=== PATIENT | female | born 1950 | race Caucasian/White ===

== ENCOUNTER → 2016-08-07 | Outpatient (CLI) | payer OTHER ==
[~2016-08-07] MED LIST: AZIT500T PO; BUPRTAB51 PO; CHOL200010 PO; LEVO50TA PO; NRN300 PO; NXM/40 PO; OMEG10007 PO; OXYC-57 PO; SERT-234 PO; SIMV20TA2 PO; SUCR1TAB PO; VNTHFA/IN INH; XRL20 PO
== END | disposition home or self-care (01) ==
LOC: C.RDSM 14:32
PROVIDERS: ATTEND Physical Medicine & Rehabilitation Sports Medicine
DX: Z96.659 Presence of unspecified artificial knee joint (principal); M19.90 Unspecified osteoarthritis, unspecified site; M22.8X2 Other disorders of patella, left knee

== ENCOUNTER → 2017-02-26 | Outpatient (CLI) | payer OTHER ==
[~2017-02-26] MED LIST changes: -OXYC-57 PO
== END | disposition home or self-care (01) ==
LOC: C.RDSM 15:37
PROVIDERS: ATTEND Physical Medicine & Rehabilitation Sports Medicine
DX: Z96.652 Presence of left artificial knee joint (principal); M17.0 Bilateral primary osteoarthritis of knee

== ENCOUNTER → 2017-03-01 | Outpatient (CLI) | payer OTHER ==
--- NOTE | 2017-03-01 14:41 | DIAGNOSTIC IMAGING REPORT ---
VIDEO SWALLOW CLINICAL HISTORY: 66 years-old Female with R13.10 [id number]. Acute dysphasia. TECHNIQUE: Video fluoroscopic evaluation of swallowing was performed in the AP and lateral projections by the speech pathology staff. The patient is fed nectar-thick and thin liquid barium, a barium coated wafer, and barium pudding. FLUOROSCOPY TIME: 1.9 minutes. COMPARISON STUDY: Chest radiograph 03/31/2016. FINDINGS: There is normal hyoid excursion and epiglottic deflection. No significant penetration or aspiration identified. Mild dysmotility is noted within the distal esophagus with some tertiary contractions. Swallowing function is otherwise within normal limits. Intervertebral disc space narrowing with endplate spurring is incidentally noted within the mid and lower cervical spine. IMPRESSION: 1. No aspiration identified. 2. Please see the speech pathologist report for detailed findings and recommendations. Electronically signed by: Tr Bhatt M.D. 03/01/2017 2:40 PM Dictated Date/Time: 03/01/2017 2:37 PM
--- NOTE | 2017-03-02 11:46 | SWALLOWING EVALUATION ---
HISTORY: This 66 year old woman was referred for a video swallow study at in order to rule out aspiration and identify the safest consistencies for optimal oral intake. The patient reports that she feels food has episodes of coughing while she eats, and it is not specific to any food or liquid. Also reports that of a globus sensation in her throat. PMH is significant for GERD, COPD, DVTx2, hypothyroid, HLD, anxiety, and osteoarthritis. Currently the patient's diet is regular. PROCEDURE: The patient was seen in the Radiology Department of for the [facility]. Cursory examination of the oral cavity revealed natural dentition in good condition. Movement of the articulators was wnl. The patient was seated upright on a stool and was viewed in both the Anterior-Posterior (A-P) and Lateral planes. Volitional phonation exercises completed in the A-P plane revealed bilateral vocal fold movement and vocal intensity was judged to be wnl. In the lateral plane, the patient was given the following boluses: 1 tsp. thin liquid barium x 2, single swallow thin liquid barium self-presented from a cup x2, sequential swallows of thin liquid barium self-presented from a straw, 1 tsp. nectar-thick liquid barium, single swallow nectar-thick liquid barium self-presented from a cup x1, 1 tsp. barium pudding, and 1 club cracker coated in barium pudding. The patient was then repositioned into the A-P plane and given the following boluses: 1 cup sip nectar thick barium and 1 tsp. barium pudding. RESULTS: Oral Stage: Lip closure was adequate. The patient was able to maintain a cohesive liquid bolus upon command without lateral or posterior escape. Mastication was timely and efficient. Lingual motion for bolus transport was brisk. There was trace retention lining the tongue and palate after the swallow. The initiation of the pharyngeal swallow was delayed and triggered when the bolus head reached valleculae. Pharyngeal Stage: Soft palate elevation was complete. Laryngeal elevation revealed complete superior movement of the thyroid cartilage with complete approximation of the arytenoids to the epiglottic base. Anterior hyoid excursion was partially reduced. Epiglottic deflection was complete. Laryngeal vestibular closure was complete. The pharyngeal stripping wave was present and complete. Pharyngeal contraction was complete. There was partial distention and partial duration of the opening to the pharyngoesophageal segment (PES). Tongue base retraction was reduced, with a narrow column of contrast located between the tongue base and pharyngeal wall during the swallow. There was trace retention located in the valleculae after the swallow. Esophageal stage: There was distal esophageal retention with retrograde flow below the PES that cleared with a liquid wash. A cricopharyngeus impression was also evidenced. SUMMARY/RECOMMENDATIONS: This patient presents with normal kin-pharyngeal swallowing. The patient presents with s/s of esophageal dysfunction. The following is recommended: 1. "Slippery" regular diet, thin liquids. Avoid foods that are dry, thick, pasty, or doughy. Use condiments such as butter, gravy, and sauce to assist in keeping food moist and slippery. 2. Aspiration precautions, straws OK. Fully upright while eating and 30 minutes after meals. Do not lay flat, elevate head of the bed to at least 30 degrees at all time, to include while sleeping. 3. Safe swallow strategies: Alternate solids and liquids. Rest breaks, small frequent meals as needed. 4. Consider follow up GI as needed with any increased c/o esophageal dysfunction. A summary of the results and recommendations was discussed with the patient immediately following the study with verbal understanding. Also provided the patient with verbal and written education re: a slippery diet with verbal understanding. Thank you for referral of this patient. Please contact me at if any additional information is needed.
== END | disposition home or self-care (01) ==
LOC: C.RAD 13:01
PROVIDERS: ATTEND Physician Assistant
DX: R13.10 Dysphagia, unspecified (principal)

== ENCOUNTER → 2017-04-24 | Day surgery (SDC) | payer OTHER ==
[2017-04-11 10:04] VITALS: Ht 160 cm; Wt 94.5 kg
[~2017-04-24] VITALS: Ht 160 cm; Wt 94.5 kg
[~2017-04-24] MED LIST changes: +ATROPINE SULFATE 0.1 MG/ML 5ML SYR IV PRN; -AZIT500T PO; +BUPIVACAINE 0.5 % 5 MG/1 ML PF 10ML VIAL ONE; +CEFAZOLIN 2000MG IV PUSH 10 ML IV SCH; +CEPH500C2 PO; +DEXAMETHASONE SOD INJ 4 MG/ML VIAL ONE; +EpHEDrine SULFATE INJ 50 MG/ML AMP IV PRN; +FENTANYL CITRATE INJ 50 MCG/1 ML 2 ML VIAL IV PRN; +FENTANYL CITRATE INJ 50 MCG/1 ML 2 ML VIAL ONE; +LACTATED RINGER'S 1000ML 1,000 ML IV SCH; +LIDOCAINE HCL 2% 2 ML VIAL (20MG/ML) ONE; +LIDOCAINE HCL 2% LOCAL 20 ML VIAL ONE; +MIDAZOLAM HCL 1 MG/ML 2ML VIAL ONE; +MISCCAP80 PO; -NXM/40 PO; -OMEG10007 PO; +ONDANSETRON INJ 2 MG/ML 2 ML VIAL IV PRN; +PANT40TA PO; +PROPOFOL IV EMULSION 10 MG/ML 20 ML VIAL IV ONE; +SODIUM CHLORIDE 0.9% 1000ML 1,000 ML IV SCH; +TOLT1CAP6 PO
--- NOTE | 2017-04-24 06:53 | History & Physical Bridge Note ---
H&P Re-Evaluation Bridge Note: I have examined the patient, reviewed the History & Physical and in the interval since the performance of the History & Physical I have noted the following changes of clinical significance: consent obtained.No changes noted
--- NOTE | 2017-04-24 06:55 | Discharge Instructions ---
Discharge Instructions Date of Service Apr 24, 2017. Visit Reason for Visit: Right Carpal Tunnel Syndrome Discharge Discharge Diagnosis / Problem: same Discharge Goals Goal(s): Decrease discomfort, Improve function Medications Stopped Medications Name(s): cesariorelgiovanni, last dose 04/20/17 Restart Stopped Medication(s): resume all meds starting tomorrow Activity Recommendations Activity Limitations: as noted below Lifting Limitations: until after follow-up appointment Exercise/Sports Limitations: until after follow-up appointment May Resume Sexual Activity: when tolerated Shower/Bathe: keep incision dry Anesthesia . Post Anesthesia Instructions: If you have had General Anesthesia or IV Sedation: * Do not drive today. * Resume driving when surgeon permits. * Do not make important decisions or sign legal documents today. * Call surgeon for: 1. Temperature elevations greater than 101 degrees F. 2. Uncontrollable pain. 3. Excessive bleeding. 4. Persistent nausea and vomiting. 5. Medication intolerance (nausea, vomiting or rash). * For nausea and vomiting use only clear liquids such as: tea, soda, bouillon until nausea subsides, then gradually increase diet as tolerated. * If you have any concerns or questions, call your surgeon's office. If physician is unavailable and it is an emergency, call 911 or go to the nearest emergency room. . Instructions / Follow-Up Instructions / Follow-Up The following are instructions to follow after minor hand surgery. ACTIVITY RECOMMENDATIONS: * Minimize activity until your first visit after surgery. * No excessive walking, jogging, sports or laboring. * Return to activity is individualized. Most patients are able to return to everyday activities within 2 weeks. * Return to sports or intensive labor usually occurs at 1-2 months. * DRIVING: Driving may be resumed when you feel you have adequate pain control and use of the hand. * BATHING: You may shower or sponge-bathe immediately after surgery. The dressing will need to be covered with a plastic bag or plastic wrap until the dressing is changed on the fourth or fifth day after surgery. Once the dressing has been changed on the fourth or fifth day after surgery, you may shower and get the incision wet. * Wash with regular soap and water. * Do not bathe (submerge the incision), soak, swim or use a hot tub until the incision is completely healed over with normal skin and the doctor has given the OK to proceed. * There is no need to apply any ointments, powders or salves to your incision. * Do not apply alcohol or hydrogen peroxide directly to the incision. Diluted peroxide (50:50 mixture with sterile saline) may be used to clean dried blood from around the incision area. WORK/SCHOOL: * You may return to sedentary work or school when you are feeling comfortable. This is usually 3-7 days after surgery. * Expect increased discomfort with increased activity. Continue to elevate and ice the hand as much as possible. DIET: * Resume previous diet. MEDICATIONS: * You will have a prescription for pain medication and an anti-inflammatory medication after surgery. Use the pain pills for severe pain and the anti-inflammatory for less severe pain. * Once the pain pills have run out, try to use the anti-inflammatory. If this is not effective then contact the office for assistance. * The pain medication may cause nausea, constipation and sleepiness. You should see how they affect you before driving or similar activity. * The anti-inflammatory may cause stomach upset and bleeding. If this occurs, let your doctor know immediately . * Some patients may need blood clot prevention. This can be done with either a pill or a simple shot. Your doctor will advise you on when to begin these medications and how to take them. * Do not take aspirin or other anti-inflammatory products (i.e. Advil or Aleve ) if taking blood thinner medication. * Take a stool softener like Colace or a stimulant like Senokot to prevent constipation. SPECIAL CARE INSTRUCTIONS: ICE: * Do not apply ice directly to the skin. * Use a thin dressing or stockinet between the skin and ice bag. The dressing in place after surgery will suffice. * Apply ice for 20-30 minutes and repeat every 2-4 hours. This is especially important for the first 3-7 days after surgery. * Once the pain improves, use ice as needed. ELEVATION: * Keep your hand elevated at or above the level of your heart as much as possible. * Expect some increased discomfort and swelling if you allow your hand to hang down for any length of time. DRESSING: * Your dressing will be changed 4-5 days after surgery by the physical therapist or physician's assistant plant control operator. Leave your dressing intact until this time. * You may then change your dressing daily with clean dry gauze or Band-aids and a soft wrap or stockinet. * Always wash your hands prior to touching the incision area. * Once the stitches are removed, you may leave the wound open to air or cover with a thin bandage. * There is no need to apply any ointments, powders or salves to your incision. * Expect some bloody drainage for the first few days after surgery. * Leave the tape strips in place (if present) for 5-7 days. * The initial dressing after surgery may become soaked with blood or fluid which is normal. You may reinforce your dressing with clean, dry gauze as needed. BRACE: * Bracing is generally not needed after routine hand surgery. THERAPY: * Physical therapy may be prescribed after your surgery. * For carpal tunnel and trigger digit surgery you may begin moving your fingers and wrist immediately after surgery as tolerated. * Be careful to not overuse. * Once the sutures are removed, further range of motion exercises can be performed. * Hand incisions may be very sensitive for a few months after surgery so avoid excessive pressure on the incision. If necessary, use a padded weightlifters' glove. * You may massage the incision with skin cream to make it less sensitive and reduce scarring. * Hand strength usually returns with normal use. * If needed, squeezing a soft sponge or Play-dough may help. * Your doctor will recommend physical therapy if necessary. PROBLEMS/QUESTIONS: * If you have any problems such as severe pain, numbness, tingling or high fevers or if you have any questions, please contact the office at [phone]. * It is not uncommon to have some numbness and tingling after the surgery especially if you have had a nerve block done. This should gradually improve over the first 1- 2 days. If this persists longer or worsens then contact the office. FOLLOW UP VISIT: * If not already scheduled, please call the office at to schedule follow-up appointments for approximately 10 days, 6 weeks and 3 months after surgery. Diet Recommendations Recommended Home Diet: resume previous diet Procedures Procedures Performed: see op note Pending Studies Studies pending at discharge: no Medical Emergencies . Who to Call and When: Medical Emergencies: If at any time you feel your situation is an emergency, please call 911 immediately. . Non-Emergent Contact Non-Emergency issues call your: Specialist Call Non-Emergent contact if: temperature is above 101.5, wound has increased drainage, wound has increased redness, wound has increased pain . . "Provider Documentation" section prepared by Virgil Interiano. .
--- NOTE | 2017-04-24 08:24 | [facility] Post Operative Brief Note ---
Immediate Operative Summary Operative Date Apr 24, 2017. Pre-Operative Diagnosis Right Carpal Tunnel Syndrome Post-Operative Diagnosis same Procedure(s) Performed Right Carpal Tunnel Open Release Surgeon Dr Interiano Electric Solderer Surgeon(s) AGUSTIN Nunez Estimated Blood Loss trace Findings CTS Fluids (cc crystalloids) 700cc Specimens none Drains none Anesthesia local/sedation Complication(s) None Disposition Recovery Room / PACU
[2017-04-24 08:26] VITALS: TEMP 37
--- NOTE | 2017-04-24 08:33 | Anesthesia Progress Nt - [facility] ---
Anesthesia Post Op Note Date & Time Apr 24, 2017 at 08:32 Vital Signs Pain Intensity: 0 Vital Signs Past 12 Hours Date Time Temp Pulse Resp B/P (MAP) Pulse Ox O2 Delivery O2 Flow Rate FiO2 04/24/17 06:44 163/89 (113) 04/24/17 06:31 36.6 76 16 152/106 (121) 96 Room Air Notes Mental Status: alert / awake / arousable, participated in evaluation Pt Amnestic to Procedure: Yes Nausea / Vomiting: adequately controlled Pain: adequately controlled Airway Patency, RR, SpO2: stable & adequate BP & HR: stable & adequate Hydration State: stable & adequate Anesthetic Complications: no major complications apparent
--- NOTE | 2017-04-24 08:46 | OPERATIVE REPORT ---
DATE OF OPERATION: 04/24/2017 SURGEON: Virgil Interiano MD MACHINING AND ASSEMBLY SUPERVISOR: Troy Kasper PA-C. No resident or fellow available. PREOPERATIVE DIAGNOSIS: Right carpal tunnel syndrome. POSTOPERATIVE DIAGNOSIS: Same. OPERATION PERFORMED: Right carpal tunnel release. PERIOPERATIVE SITUATION: Medically cleared female with intractable numbness and tingling. Physical exam and EMG consistent with diagnosis. We will proceed with surgery. Consent obtained. All risks and benefits identified on consent. DESCRIPTION OF PROCEDURE: The patient appropriately identified, site verified, consent verified, 2 grams of Ancef confirmed as being given. The right upper extremity was blocked with 4 mL of 0.5% plain Marcaine and 4 mL of 2% plain lidocaine. The upper extremity was then prepped and draped in usual routine fashion. Tourniquet inflated to 250 mmHg after exsanguination of limb with a rubber Esmarch bandage for a total of 12 minutes. Curvilinear incision made based on the fourth ray. Sharp dissection carried to skin and blunt dissection down to the palmar fascia. This was then incised under direct vision. Transverse carpal ligament and antebrachial fascia was then identified and incised from proximal to distal. The carpal canal was opened. There were no masses. There was good decompression. The nerve became hyperemic. The FPL was identified. The motor takeoff branch was not explored. The wound was then irrigated and closed with horizontal 4-0 nylon mattress sutures appropriately dressed and the patient transferred to the holding area in satisfactory condition having tolerated the procedure well. ESTIMATED BLOOD LOSS: Trace. CRYSTALLOID: 700 mL. Start her Xarelto for baseline tomorrow. I attest to the content of the Intraoperative Record and any orders documented therein. Any exception s are noted below.
[2017-04-24 09:05] VITALS: BP 135/82; PULSE 62; O2SAT 95
--- NOTE | 2017-04-24 15:17 | [facility] Operative Report ---
Operative Report Operative Date Apr 24, 2017. Pre-Operative Diagnosis Right Carpal Tunnel Syndrome Post-Operative Diagnosis same Procedure(s) Performed Right Carpal Tunnel Open Release Surgeon Dr Interiano Electric Range Servicer Surgeon(s) AGUSTIN Nunez Estimated Blood Loss trace Findings Median nerve entrapment right wrist Fluids (cc crystalloids) 700cc Specimens none Drains none Complication(s) None Disposition phase 2 recovery Indications This 66-year-old white female presented to the office with complaints of right hand numbness and tingling. She had tried conservative care measures without success. She elected to proceed with surgical intervention after being educated about potential risks and outcomes. Preoperative EMG was obtained. Description of Procedure Patient was taken to the operating room where she was given local anesthetic and sedation. She was prepped and draped in usual sterile fashion. Please see Dr. Interiano's operative report for specifics of the procedure. I was present for the entire case from initial patient positioning through final wound closure. Assistance was provided in tissue traction, hemostasis, final wound closure and splint application. Patient was taken to phase 2 recovery in satisfactory condition. I attest to the content of the Intraoperative Record and any orders documented therein. Any exceptions are noted below.
== END | disposition home or self-care (01) ==
LOC: X.SURG 06:18
PROVIDERS: ATTEND Physical Medicine & Rehabilitation Sports Medicine
DX: G56.01 Carpal tunnel syndrome, right upper limb (principal); K21.9 Gastro-esophageal reflux disease without esophagitis; J44.9 Chronic obstructive pulmonary disease, unspecified; E03.9 Hypothyroidism, unspecified; M19.90 Unspecified osteoarthritis, unspecified site; F32.9 Major depressive disorder, single episode, unspecified; Z86.718 Personal history of other venous thrombosis and embolism; Z79.01 Long term (current) use of anticoagulants; Z79.899 Other long term (current) drug therapy

== ENCOUNTER 2017-09-19 07:47 | Inpatient (IN) | payer OTHER, MEDICARE ==
[2017-08-20 09:36] VITALS: BMI 37.0
--- NOTE | 2017-08-20 10:09 | PAT Medication Instructions ---
Service Date Aug 20, 2017. Current Home Medication List Albuterol Hfa (Ventolin Hfa), 2 PUFF INH Q6H PRN for SOB/Wheezing Bupropion (Wellbutrin-Xl), 300 MG PO QAM Gabapentin (Gabapentin), 4 CAP PO QD Ibuprofen (Advil), 400 MG PO Q6H PRN for RN Levothyroxine Sodium (Synthroid), 50 MCG PO QAM Mirabegron (Myrbetriq Er), 25 MG PO QPM Pantoprazole (Protonix), 40 MG PO QAM Probiotic Product (Probiotic), 1 CAP PO QAM Rivaroxaban (Xarelto), 1 TAB PO QPM Sertraline (Zoloft), 150 MG PO QAM Simvastatin (Zocor), 20 MG PO QAM Sucralfate (Sucralfate), 1 TAB PO BID Tiotropium [place] (Spiriva Handihaler), 1 CAP INH QAM Medication Instructions For Your Scheduled Surgery - Check with surgeon and prescribing physician for instructions (in order for spinal anesthesia to be used, need to be off Xarelto for 72 hours prior to surgery-- patient advised to check with prescribing physician) Rivaroxaban (Xarelto), 1 TAB PO QPM - Check with surgeon for instructions: Ibuprofen (Advil), 400 MG PO Q6H PRN for RN - Hold the following medications the morning of surgery: Mirabegron (Myrbetriq Er), 25 MG PO QPM Probiotic Product (Probiotic), 1 CAP PO QAM Sucralfate (Sucralfate), 1 TAB PO BID - Take the following medications the morning of surgery with a sip of water: Sertraline (Zoloft), 150 MG PO QAM Simvastatin (Zocor), 20 MG PO QAM Tiotropium [place] (Spiriva Handihaler), 1 CAP INH QAM Pantoprazole (Protonix), 40 MG PO QAM' Levothyroxine Sodium (Synthroid), 50 MCG PO QAM Bupropion (Wellbutrin-Xl), 300 MG PO QAM Albuterol Hfa (Ventolin Hfa), 2 PUFF INH Q6H PRN for SOB/Wheezing (if needed) - Take the following medications as scheduled the night before surgery: Sucralfate (Sucralfate), 1 TAB PO BID Albuterol Hfa (Ventolin Hfa), 2 PUFF INH Q6H PRN for SOB/Wheezing (if needed) Gabapentin (Gabapentin), 4 CAP PO QD If you have any questions please call us at [phone] or [phone] or [phone]
[2017-08-20 11:03] LABS: BASO % 0.3 %; BASO ABS # 0.02 K/uL (0-0.2); EOS ABS # 0.18 K/uL (0-0.5); HEMATOCRIT 40.2 % (37-47); HEMOGLOBIN 12.9 g/dL (12.0-16.0); IG# 0.02 K/uL (0.00-0.02); LYMPH % 33.1 %; LYMPH ABS # 1.96 K/uL (1.2-3.4); MEAN CORPUSCULAR HEMOGLOBIN 29.5 pg (25-34); MEAN CORPUSCULAR HGB CONC 32.1 g/dl (32-36); MEAN PLATELET VOLUME 10.9 fL (7.4-10.4); MONO % 7.9 %; MONO ABS # 0.47 K/uL (0.11-0.59); NEUT % 55.4 %; NEUT ABS # 3.28 K/uL (1.4-6.5); PLATELET COUNT 210 K/uL (130-400); RED CELL DISTRIBUTION WIDTH CV 13.7 % (11.5-14.5); RED CELL DISTRIBUTION WIDTH SD 46.4 fL (36.4-46.3); WHITE BLOOD COUNT 5.93 K/uL (4.8-10.8)
[2017-08-20 11:12] LABS: PTT PATIENT 27.3 SECONDS (21.0-31.0)
[2017-08-20 11:28] LABS: CALCIUM 9.5 mg/dl (8.5-10.1); CREATININE 0.75 mg/dl (0.60-1.20); POTASSIUM 4.1 mmol/L (3.5-5.1)
--- NOTE | 2017-08-21 15:56 | HISTORY & PHYSICAL EXAMINATION ---
DATE OF ADMISSION: 09/19/2017 PREOPERATIVE HISTORY AND PHYSICAL CHIEF COMPLAINT: Right knee pain. HISTORY OF PRESENT ILLNESS: This 66-year-old white female presents to the office with complaints of anterior right knee pain that has been ongoing for several years. It has become worse with time. She previously had a right total knee arthroplasty in approximately 2000. She did not have the patella resurfaced at that time. She has done well overall other than the patellar pain. She no longer desires to live with the discomfort. She previously had a left knee patellar resurfacing in 2016 and has done very well with that. She elects to proceed with the same on the right. The right knee pain does affect her ADLs. It is worse with ambulation and weightbearing. She has tried physical therapy without improvement. No numbness or tingling. No weakness overall. No other complaints. She is scheduled for right knee patellar resurfacing and possible poly exchange on 09/19/2017. PAST MEDICAL HISTORY: Significant for COPD, osteoarthritis, hypothyroidism, history of DVT, GERD, depression, and low back pain. PAST SURGICAL HISTORY: Cholecystectomy, knee arthroscopy, carpal tunnel release x2, hysterectomy, right elbow surgery, tonsillectomy, total knee arthroplasties in 2000 and 2001, cyst excision in right ankle, cataract surgery bilaterally, and left knee patellar resurfacing in 2016. ALLERGIES: NKDA. CURRENT MEDICATIONS: Gabapentin 100 mg 3 capsules p.o. q.i.d., ibuprofen 200 mg p.o. q. 6 hours p.r.n., Myrbetriq 25 mg p.o. daily, pantoprazole 40 mg p.o. daily, probiotic formula daily, Spiriva 18 mcg inhalation daily, sucralfate daily, Synthroid 50 mcg p.o. daily, Wellbutrin 300 mg extended release p.o. daily, Xarelto 20 mg p.o. daily, Zocor 20 mg p.o. at bedtime, and Zoloft 150 mg p.o. daily. FAMILY HISTORY: Significant for cancer and heart disease. SOCIAL HISTORY: The patient is single. She lives with her partner. No tobacco use, occasional ETOH use. REVIEW OF SYSTEMS: Significant for above-stated conditions, otherwise unremarkable. PHYSICAL EXAMINATION: GENERAL: Well-developed, well-nourished elderly white female, in no acute distress. Sitting in a chair. Alert and oriented. SKIN: Warm and dry with good turgor. No rashes or lesions. No ecchymosis or erythema. HEENT: Normocephalic, atraumatic. EYES: PERRLA, EOMI. NOSE: Nares patent bilaterally without turbinate enlargement. MOUTH: Oropharynx without erythema or exudate. No lesions noted. Uvula in the midline. Oral mucosa moist. Fair dentition. Dental caps and fillings are noted. HEART: RRR. No MGR. LUNGS: Clear to auscultation bilaterally. No crackles, rhonchi or wheezing. Good air movement. ABDOMEN: Obese. Bowel sounds present x4, soft, nontender. No organomegaly. No masses. MUSCULOSKELETAL: Right knee has no intra-articular effusion. No redness or warmth. Mild crepitus is palpable with motion. Full terminal extension. Flexion to greater than 90 degrees. She does have 1+ peripheral edema in the legs. No medial or lateral joint line discomfort. Ambulatory with a minimally antalgic gait. NEUROLOGIC: Gross sensation is intact across both lower extremities by soft touch. Peripheral pulses are 2+. 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 Arthritic changes are noted. No evidence of loosening of her right total knee implant. IMPRESSION: Right knee patellofemoral arthritis. PLAN: Postoperative prescriptions for Percocet will be provided at discharge from the hospital. Anticipate discharge to home with home health services. She already has a walker. She will obtain medical clearance from Dr. Tse. Preoperative lab work, EKG, and chest x-ray have been ordered. She understands that there will be a possibility of poly liner exchange. Informed written consent will be obtained on the morning of surgery. RAMIREZ
[2017-09-19] VITALS (7 sets, daily range): BP systolic 110–168; BP diastolic 70–86; PULSE 69–82; TEMP 36.4–36.9; O2SAT 90–96; Ht 160 cm; Wt 95.7 kg
[~2017-09-19] VITALS: Ht 160 cm; Wt 95.7 kg
[~2017-09-19 07:47] MED LIST changes: -ATROPINE SULFATE 0.1 MG/ML 5ML SYR IV PRN; +BUPIVACAINE 0.25% 30 ML VIAL ONE; -CEFAZOLIN 2000MG IV PUSH 10 ML IV SCH; +CEFAZOLIN 2000MG IV PUSH 15 ML IV SCH; -CEPH500C2 PO; -CHOL200010 PO; -DEXAMETHASONE SOD INJ 4 MG/ML VIAL ONE; -EpHEDrine SULFATE INJ 50 MG/ML AMP IV PRN; -FENTANYL CITRATE INJ 50 MCG/1 ML 2 ML VIAL IV PRN; -FENTANYL CITRATE INJ 50 MCG/1 ML 2 ML VIAL ONE; +IBUP-1050 PO; +LACTATED RINGER'S 1000ML 500 ML IV SCH; +LACTATED RINGER'S 1000ML IV SCH; -LIDOCAINE HCL 2% 2 ML VIAL (20MG/ML) ONE; -LIDOCAINE HCL 2% LOCAL 20 ML VIAL ONE; -MIDAZOLAM HCL 1 MG/ML 2ML VIAL ONE; +MIRA100T PO; -ONDANSETRON INJ 2 MG/ML 2 ML VIAL IV PRN; -PROPOFOL IV EMULSION 10 MG/ML 20 ML VIAL IV ONE; +ROPIVACAINE 5MG/ML 30 ML 150 MG, BUPIVACAINE 0.5% MPF INJ 30 ML, EpINEphrine HCL INJ 0.... INFIL SCH; -SODIUM CHLORIDE 0.9% 1000ML 1,000 ML IV SCH; +SPRIN/30 INH; -TOLT1CAP6 PO; +TRANEXAMIC ACID INJ 1,000 MG x 1 bag Topical TOP SCH
--- NOTE | 2017-09-19 08:19 | History & Physical Bridge Note ---
H&P Re-Evaluation Bridge Note: I have examined the patient, reviewed the History & Physical and in the interval since the performance of the History & Physical I have noted the following changes of clinical significance:consent obtained. No changes noted
[2017-09-19] MEDS ORDERED: FENTANYL CITRATE INJ 50 MCG/1 ML 2 ML VIAL ONE (10:04)
[2017-09-19] MEDS ORDERED: LIDOCAINE HCL 2% 2 ML VIAL (20MG/ML) ONE (10:04)
[2017-09-19] MEDS ORDERED: MIDAZOLAM HCL 1 MG/ML 2ML VIAL ONE ×2 (10:04→10:45)
[2017-09-19] MEDS ORDERED: PROPOFOL IV EMULSION 10 MG/ML 20 ML VIAL IV ONE ×2 (10:04→14:16)
[2017-09-19] MEDS ORDERED: POVIDONE-IODINE OP SOLN 30 ML BTL ONE (10:57)
[2017-09-19] MEDS ORDERED: ORTHO JOINT ANESTHETIC ONE (10:57)
[2017-09-19] MEDS ORDERED: EpHEDrine SULFATE INJ 50 MG/ML AMP IV PRN (11:15)
[2017-09-19] MEDS ORDERED: ATROPINE SULFATE 0.1 MG/ML 5ML SYR IV PRN (11:15)
[2017-09-19] MEDS ORDERED: PHENYLEPHRINE 100MCG/ML 5ML SYR ONE (12:26)
--- NOTE | 2017-09-19 12:32 | [facility] Post Operative Brief Note ---
Immediate Operative Summary Operative Date Sep 19, 2017. Pre-Operative Diagnosis Right knee patellofemoral arthritis Post-Operative Diagnosis Same as preop Procedure(s) Performed Right Patella Resurfacing Surgeon Dr. Interiano Voting Machine Repairer Surgeon(s) Troy Kasper PA-C, Cuong Massey Fellow Estimated Blood Loss 50 ml Findings Consistent with Post-Op Diagnosis Fluids (cc crystalloids) 1200cc Specimens A. Right Knee Bone and Tissue Drains None Anesthesia Type MAC Spinal Regional Complication(s) none Disposition Accompanied Pt To Recover: no Disposition: Recovery Room / PACU
[2017-09-19] MEDS ORDERED: ACETAMINOPHEN 325 MG TAB PO PRN (13:00)
[2017-09-19] MEDS ORDERED: ALUMINUM/MAGNESIUM/SIMETH (MAALOX MAX) 30 ML UDC PO PRN (13:00)
[2017-09-19] MEDS ORDERED: ONDANSETRON INJ 2 MG/ML 2 ML VIAL IV PRN (13:00)
[2017-09-19] MEDS ORDERED: MoRPHine SULFATE 2 MG/ML CARP IV PRN (13:00)
[2017-09-19] MEDS ORDERED: METOCLOPRAMIDE HCL INJ 5 MG/ML 2 ML VIAL IV PRN (13:00)
[2017-09-19] MEDS ORDERED: BISACODYL 10 MG SUPP PR PRN (13:00)
[2017-09-19] MEDS ORDERED: ACETAMINOPHEN IV 100 ML IV PRN (13:00)
[2017-09-19] MEDS ORDERED: DiphenhydrAMINE HCL 50 MG/ML VIAL IV PRN (13:00)
[2017-09-19] MEDS ORDERED: ALBUTEROL HFA 8 GM INHALER INH PRN (13:00)
--- NOTE | 2017-09-19 13:17 | DIAGNOSTIC IMAGING REPORT ---
R KNEE 1 OR 2 VIEWS ROUTINE HISTORY: 66 years-old Female AP/LATERAL IN PACU RIGHT KNEE status post right knee total joint arthroplasty. Right knee osteoarthritis COMPARISON: Knee radiographs 02/26/2017 TECHNIQUE: 2 views of the right knee FINDINGS: Right knee total joint hinged arthroplasty with evidence of prior patellar resurfacing noted. Expected postsurgical soft tissue swelling and deep tissue air with surgical drain in place. Alignment is satisfactory without periprosthetic fracture or malalignment. IMPRESSION: Hinged right knee total joint arthroplasty with satisfactory alignment. The above report was generated using voice recognition software. It may contain grammatical, syntax or spelling errors. Electronically signed by: Tr Bhatt M.D. 09/19/2017 1:16 PM Dictated Date/Time: 09/19/2017 1:14 PM
--- NOTE | 2017-09-19 13:19 | Anesthesiology Progress Note ---
Anesthesia Post Op Note Date & Time Sep 19, 2017 at 13:18 Vital Signs Pain Intensity: 0 Vital Signs Past 12 Hours Date Time Temp Pulse Resp B/P (MAP) Pulse Ox O2 Delivery O2 Flow Rate FiO2 09/19/17 13:15 36.5 76 20 127/78 95 Room Air 2 09/19/17 13:05 76 16 132/78 95 Room Air 2 09/19/17 12:55 68 18 128/96 99 Oxymask 8 09/19/17 12:48 36.2 70 16 133/89 99 Oxymask 8 09/19/17 08:58 36.9 74 18 168/86 Notes Mental Status: alert / awake / arousable, participated in evaluation Pt Amnestic to Procedure: Yes Nausea / Vomiting: adequately controlled Pain: adequately controlled Airway Patency, RR, SpO2: stable & adequate BP & HR: stable & adequate Hydration State: stable & adequate Neuraxial Anesthesia: was administered, sensory block is resolving Anesthetic Complications: no major complications apparent
--- NOTE | 2017-09-19 13:24 | OPERATIVE REPORT ---
DATE OF OPERATION: 09/19/2017 SURGEON: Virgil Interiano MD MOTION PICTURE EQUIPMENT MACHINIST: Bryson. SECOND HAMMER SETTER: Troy Kasper PA-C PREOPERATIVE DIAGNOSIS: Patellofemoral arthropathy status post remote total knee replacement. POSTOPERATIVE DIAGNOSIS: Same. OPERATION PERFORMED: Patellar resurfacing right knee. PERIOPERATIVE SITUATION: Medically cleared female who has had bilateral knee replacements with AMK and patellar preservation in the past. She recently had the left side done, now she wants the right side done due to anterior knee pain with crouching and going up and down stairs. She has had no overt signs of infection and all blood work in the past has been unremarkable. There has been no effusion. PROCEDURE: Cemented resurfacing of right patella with all poly patella cemented. SUMMARY OF IMPLANTS: A 9 x 36 three-peg all poly patella, Pal[place]os G cement. ESTIMATED BLOOD LOSS: 50 mL. CRYSTALLOID: 1200 mL. DESCRIPTION OF PROCEDURE: Medically cleared female with anterior knee pain going up and down stairs. She has had a similar procedure done the other side, has done well with that. She wants to have this patellar resurfaced as well. There have been no overt signs of infection clinically or by x-ray. The implant has been in 3 years with no issues. PROCEDURE: The patient was appropriately identified, site verified, consent verified, 2 grams of Ancef confirmed as being given. The right lower extremity was prepped and draped in usual routine fashion. Tourniquet inflated to 300 mmHg after exsanguination of the limb with a rubber bandage for a total of 30 minutes. A parapatellar arthrotomy was performed using the old incision. There was a significant scar tissue about the extensor mechanism. This was all released appropriately with care taken to protect the proximal and distal attachment of the extensor mechanism. A synovectomy was completed. The poly was inspected. It was in good shape, so it was left alone. The patella was then everted extra tissue removed around the margin of the patella and then the patella was resected with 1 small revision in depth leaving about 16 mm. The 36 trial surface area was then placed and then 3 seating holes made and the trial seated and tracked well. The wound was then irrigated with Betadine, Pulsavac, TXA and after several minutes of this, the permanent was cemented into position. After 12 minutes, the tourniquet deflated. After 2 additional minutes, the knee was inspected, everything was nice. There were no loose pieces, the patella tracked well. There was no major bleeding encountered. Estimated blood loss was less than 50 mL Crystalloid 1200 mL. The wound was then closed using #2 Vicryl for the parapatellar arthrotomy, 2-0 Vicryl for subcutaneous layer and stainless steel clips for skin. DVT prophylaxis will be with Coumadin. I attest to the content of the Intraoperative Record and any orders documented therein. Any exception s are noted below.
--- NOTE | 2017-09-19 13:40 | PROGRESS NOTE ---
DATE: 09/19/2017 Postop check status post resurfacing right patella. At this point in time the patient is doing well, has a normal neurovascular check both lower extremities. Vital signs are stable. She is afebrile. Denies chest pain, shortness of breath, fever, chills, nausea, vomiting or headache. Wound dressing clean, dry and intact. Postop x-rays look excellent. ASSESSMENT: Doing well. Continue with care pathway. If she eats dinner tonight well, we will Hep-Lock IV. Mobilize to tolerance. She was advised concerning discharge plan for tomorrow as well as her family.
[2017-09-19] MEDS: KETOROLAC TROMETHAMINE 15 MG/ML VIAL IV. SCH ×2 (15:43→21:53)
[2017-09-19] MEDS: GABAPENTIN 300 MG CAP PO SCH (15:43)
[2017-09-19] MEDS: FERROUS GLUCONATE 324 MG TAB PO SCH (17:51)
[2017-09-19] MEDS: CEFAZOLIN IV 2,000 MG in SYRINGE 0 ML IV SCH (17:53)
[2017-09-19] MEDS: D5W AND 1/2NSS + 20MEQ KCL 1,000 ML IV SCH (20:43)
[2017-09-19] MEDS: DOCUSATE SODIUM 100 MG CAP PO SCH (20:44)
[2017-09-19] MEDS: SUCRALFATE 1 GM TAB PO SCH (20:44)
[2017-09-19] MEDS: MIRABEGRON ER 25 MG TAB PO SCH (20:44)
[2017-09-19] MEDS: MAGNESIUM HYDROXIDE SUSP 30 ML UDC PO PRN (20:46)
[2017-09-20] MEDS: CEFAZOLIN IV 2,000 MG in SYRINGE 0 ML IV SCH (01:44)
[2017-09-20 03:23] VITALS: BP 128/81; PULSE 72; TEMP 36.3; O2SAT 94
[2017-09-20] MEDS: KETOROLAC TROMETHAMINE 15 MG/ML VIAL IV. SCH ×2 (03:51→10:22)
[2017-09-20] MEDS: LEVOTHYROXINE 50 MCG TAB PO SCH (05:53)
[2017-09-20] MEDS: D5W AND 1/2NSS + 20MEQ KCL 1,000 ML IV SCH (05:53)
[2017-09-20 07:30] VITALS: BP 139/84; PULSE 71; TEMP 36.3; O2SAT 94
[2017-09-20] MEDS ORDERED: DEXAMETHASONE INJ 10 MG in SYRINGE 0 ML IV ONE (07:30)
[2017-09-20] MEDS: OXYCODONE HCL IR 5 MG TAB (IMMEDIATE RELEASE) PO PRN ×3 (07:39→21:02)
[2017-09-20 07:44] LABS: CALCIUM 8.5 mg/dl (8.5-10.1); CREATININE 0.73 mg/dl (0.60-1.20)
[2017-09-20 07:46] LABS: HEMATOCRIT 36.3 % (37-47); HEMOGLOBIN 11.4 g/dL (12.0-16.0); MEAN CELL VOLUME 92.6 fL (80-100); MEAN CORPUSCULAR HEMOGLOBIN 29.1 pg (25-34); MEAN CORPUSCULAR HGB CONC 31.4 g/dl (32-36); MEAN PLATELET VOLUME 11.2 fL (7.4-10.4); PLATELET COUNT 202 K/uL (130-400); RED CELL DISTRIBUTION WIDTH CV 13.6 % (11.5-14.5); WHITE BLOOD COUNT 9.41 K/uL (4.8-10.8)
--- NOTE | 2017-09-20 08:04 | PROGRESS NOTE ---
DATE: 09/20/2017 Postop day #1 status post patellar resurfacing for a total knee replacement and patellar preservation done over a decade ago. At this point in time, the patient is requesting that she stay another night due to social issues at home. She was seen by social media strategist and home services will be arranged. However, she is still uncomfortable with getting discharged today. Vital signs are stable. She is afebrile. Neurovascular check is normal. A.m. labs are pending. Wound dressing clean, dry, and intact. ASSESSMENT: Status post patellar resurfacing. At this point in time, the patient is declining discharge based on social media strategist needs at her home, worried about her family that will take care of her, who also have medical issues. We will try to comply and keep her here one more day and discharge her tomorrow. I will have social media strategist see the patient and make sure all arrangements are in place. Follow up after discharge in 2 weeks for staple removal. She will start her anticoagulation today. She will need a pressure dressing for at least a week based on the potential risk for bleeding with the type of anticoagulation she is on.
[2017-09-20] MEDS: MULTIVITAMIN TAB PO SCH (09:00)
[2017-09-20] MEDS ORDERED: PANTOprazole SOD 40 MG TAB PO SCH (09:00)
[2017-09-20] MEDS: FERROUS GLUCONATE 324 MG TAB PO SCH ×3 (09:03→16:57)
[2017-09-20] MEDS: TIOTROPIUM BROMIDE 5 PUFF/90 MCG INH INH SCH (09:03)
[2017-09-20] MEDS: DOCUSATE SODIUM 100 MG CAP PO SCH ×2 (09:05→21:01)
[2017-09-20] MEDS: SUCRALFATE 1 GM TAB PO SCH ×2 (09:05→21:01)
[2017-09-20] MEDS: BuPROPion XL 300 MG TABCR PO SCH (09:06)
[2017-09-20] MEDS: PANTOprazole SOD 40 MG TAB PO SCH (09:06)
[2017-09-20] MEDS: SIMVASTATIN 20 MG TAB PO SCH (09:07)
[2017-09-20] MEDS: SERTRALINE HCL 100 MG TAB PO SCH (09:07)
[2017-09-20] MEDS: MAGNESIUM HYDROXIDE SUSP 30 ML UDC PO PRN ×2 (09:09→21:01)
--- NOTE | 2017-09-20 09:17 | Orthopedic Progress Note ---
Orthopedic Progress Note Date of Service Sep 20, 2017. Subjective Post OP Day: 1 Reports: feeling well, pain controlled w PO medications, Denies: complaints, chest pain, SOB, nausea / vomiting, light headedness, calf pain Objective calves soft nontender, N/V intact, capillary refill less than 2 sec., dressing C /D/I, incision C/D/I, A&O x3, toes mobile Date Time Temp Pulse Resp B/P (MAP) Pulse Ox O2 Delivery O2 Flow Rate FiO2 09/20/17 07:30 36.3 71 16 139/84 (102) 94 Room Air 09/20/17 07:30 Room Air 09/20/17 03:23 36.3 72 16 128/81 (97) 94 Room Air 09/19/17 23:34 Room Air 09/19/17 22:45 36.5 82 16 139/75 (96) 94 Room Air 09/19/17 17:33 36.4 78 17 130/81 (97) 90 Room Air 09/19/17 16:36 36.6 82 17 110/70 (83) 96 Room Air 09/19/17 15:33 36.4 71 16 132/83 (99) 94 Nasal Cannula 2.0 09/19/17 15:30 Room Air 09/19/17 15:03 36.4 69 16 121/77 (92) 94 Nasal Cannula 2.0 09/19/17 14:30 36.8 76 16 138/78 (98) 94 Nasal Cannula 2.0 09/19/17 14:30 Nasal Cannula 2.0 09/19/17 14:15 74 15 131/79 95 Room Air 2 09/19/17 14:00 77 17 118/80 95 Room Air 2 09/19/17 13:45 75 17 117/70 95 Room Air 2 09/19/17 13:30 73 15 134/90 95 Room Air 2 09/19/17 13:15 36.5 76 20 127/78 95 Room Air 2 09/19/17 13:05 76 16 132/78 95 Room Air 2 09/19/17 12:55 68 18 128/96 99 Oxymask 8 09/19/17 12:48 36.2 70 16 133/89 99 Oxymask 8 Laboratory Results 24 Hours: Test 09/20/17 06:29 09/20/17 06:30 Prothromb Time International Ratio 1.0 Prothrombin Time 10.1 SECONDS Hematocrit 36.3 % Hemoglobin 11.4 g/dL Assessment & Plan Assessment: s/p right TKA revision (patella replacement) 09/19/17 doing well Plan: - Regular diet - PT/OT - WBAT:RLE - Dressing change tomorrow - Xarelto for chemical VTE prophylaxis - scheduled PT/INR checks - completed post-op abx - pain control: no changes to current regimen - discharge tomorrow with home care - followup in 2 weeks in office
[2017-09-20] MEDS ORDERED: NURSING VERBAL MED ORDER ONE (09:45)
[2017-09-20] MEDS ORDERED: OXYC-57 PO (10:41)
[2017-09-20] MEDS: RIVAROXABAN 20 MG TAB PO SCH (12:04)
[2017-09-20 15:27] VITALS: BP 125/75; PULSE 87; TEMP 36.7; O2SAT 92
[2017-09-20] MEDS ORDERED: LORAZEPAM 1 MG TAB PO PRN (16:45)
[2017-09-20] MEDS: GABAPENTIN 300 MG CAP PO SCH (16:57)
--- NOTE | 2017-09-20 17:06 | PROGRESS NOTE ---
DATE: 09/20/2017 SUBJECTIVE: The patient is requesting to stay. She is ambulating reasonably well. She has no major pain issues. She will have a ride tomorrow morning and she will be discharged. Vital signs are stable. She is afebrile. Laboratory work is excellent. Wound dressing clean, dry, and intact. She started her anticoagulation today. ASSESSMENT: Overall, doing well. Plan is to discharge tomorrow. She was requesting a sleep aid. Will order Ativan 1 mg p.o. at bedtime p.r.n.
--- NOTE | 2017-09-20 17:32 | DISCHARGE SUMMARY ---
CHIEF COMPLAINT: Right knee pain. HISTORY OF PRESENT ILLNESS: Patient is a 66-year-old female admitted for elective patellar resurfacing, status post total knee replacement that was done in 2000. She has had pain with going up and down stairs. She had a similar procedure done with patellar resurfacing done in 2016 on the opposite knee. At this point in time she is requesting the same. Her hospital course has been uneventful. She had the procedure performed without any difficulty. She is ambulatory. She is having pain well managed by oral medications. PAST MEDICAL HISTORY: Remarkable for COPD, osteoarthritis, hypothyroidism, history of DVT, GERD, depression, and low back pain. PAST SURGICAL HISTORY: Remarkable for cholecystectomy, knee arthroscopy, carpal tunnel releases, hysterectomy, elbow surgery, tonsillectomy, knee arthroplasty in 2000 and 2001, cyst excision right ankle, cataract surgery bilaterally, left knee patellar resurfacing 2016. ALLERGIES: None. PREADMISSION MEDICATIONS: Include gabapentin 100 mg capsules 3 capsules p.o. q.i.d., ibuprofen 200 mg p.o. q. 6 hours p.r.n., Myrbetriq 25 mg daily, pantoprazole 40 mg daily, probiotic daily, Spiriva 18 mcg inhalation daily, sucralfate daily, Synthroid 50 mcg p.o. daily, Wellbutrin 300 mg extended release p.o. daily, Xarelto 20 mg p.o. daily, Zocor 20 mg p.o. at bedtime, Zoloft 150 mg p.o. daily. FAMILY HISTORY: Remarkable for cancer and heart disease. SOCIAL HISTORY: Reveals she is single, lives with a life partner. No tobacco or alcohol use. REVIEW OF SYSTEMS: Reveals no chest pain, shortness of breath, fever, chills, nausea, vomiting or headache. ASSESSMENT AND PLAN: Status post right patellar resurfacing, right total knee replacement originally performed in 2000. At this point in time, she is doing well. She will be discharged tomorrow. She is requesting an Ativan tablet for this evening to help with sleep. This was ordered. She did start her anticoagulation today with her Xarelto. Pressure dressing on for about a week to help control any potential negative side effects from that. Follow up in 2 weeks for staple removal.
[2017-09-20] MEDS: MIRABEGRON ER 25 MG TAB PO SCH (21:19)
[2017-09-20 22:51] VITALS: BP 163/92; PULSE 79; TEMP 36.9; O2SAT 91
[2017-09-21] VITALS (8 sets, daily range): BP systolic 147–183; BP diastolic 86–102; PULSE 71–78; TEMP 36.7; O2SAT 88–96
[2017-09-21] MEDS: OXYCODONE HCL IR 5 MG TAB (IMMEDIATE RELEASE) PO PRN ×3 (00:49→14:40)
[2017-09-21] MEDS: LEVOTHYROXINE 50 MCG TAB PO SCH (06:20)
[2017-09-21] MEDS ORDERED: OPTIRAY 320 IV PRN (06:45)
--- NOTE | 2017-09-21 07:11 | PROGRESS NOTE ---
DATE: 09/21/2017 SUBJECTIVE: The patient states that at times she has a feeling of pressure in her chest. She denies any real shortness of breath, fever, chills, nausea, vomiting or headache. She has been a little bit hypertensive. OBJECTIVE: Vital signs are stable. She has not had a temperature since admission. Blood pressure presently is 163/91. Pulse is in the 70s. Pulse ox is 96 on 2 liters. Pulses regular. ABDOMEN: Soft, nontender. PULMONARY: Can take a deep breath. Has no real pain. EXTREMITIES: Calves are nontender with the exception of the surgical site. Neurovascular check distally is normal. Wound dressing clean, dry and intact. We will change completely, took the Hunter bandage off to check her calves. ASSESSMENT: History of pulmonary embolism and deep venous thrombosis in the past. Due to that, we will need to rule out pulmonary embolism. We will obtain a CT of her chest and EKG.. At this point in time we will hold discharge until that occurs. RAMIREZ
--- NOTE | 2017-09-21 07:18 | Discharge Instructions ---
Discharge Instructions Date of Service Sep 20, 2017. Admission Reason for Admission: Right Knee Patella Femoral Arthritis Discharge Discharge Diagnosis / Problem: Right knee s/p patellar resurfacing Discharge Goals Goal(s): Decrease discomfort, Improve function, Increase independence Activity Recommendations Activity Limitations: as noted below Lifting Limitations: gradually increase as tolerated Exercise/Sports Limitations: until after follow-up appointment Shower/Bathe: keep incision dry Driving or Machine Use: No driving until cleared by Dr. Interiano Weightbearing Status: Right weightbearing (as tolerated) . Instructions / Follow-Up Instructions / Follow-Up New Medicine: * You will likely be taking one or more of these medications: 1. Percocet - Take, as directed, when you need it, every four to six hours to control your pain. * The most common side effects of pain medicine and iron are nausea and constipation. If nausea or constipation is too much of a problem or if you have any questions about your new medicines or doses, call [facility] at . We will try to help you manage these issues. VERY IMPORTANT TO READ AND REVIEW" Blood Clots and Blood Thinning Medicine: Please take your Xarelto daily to prevent clots. Pain: * The immediate post-operative period after knee replacement surgery is often quite painful. * You are given a prescription for pain medicine. You should take it, as directed, when you need it, especially before physical therapy and before going to bed. Pain that interferes with sleep is very common and can last several months. * You will likely need pain medicine for the first four to six weeks. It will not stop all of the pain. The pain will lessen and as you feel better, you may change to milder pain medicine such as Tylenol. * The most common side effects of pain medicine are nausea and constipation, so don't take more than you need. Physical Therapy: * You will have physical therapy two or three times each week for four to six weeks after your surgery in order to regain your knee range of motion and to retrain your knee to work properly. * It is just as important to make sure you are getting your knee perfectly straight as it is to regain your knee bend. * Taking a pain pill an hour before therapy can help you have a more productive and comfortable therapy session if needed. Home Exercise: * You were shown a series of exercises (heel props, heel slides, etc.) in the hospital. Do these exercises three to four times each day including the exercises you were shown in physical therapy. Walking: * Get up and walk several times each day. For the first four weeks, try not to stand or walk for more than one hour at a time. If you do stand or walk for more than one hour, you will not hurt anything, but your knee and leg will likely swell. * As you feel comfortable, you may change from the walker or crutches to a cane and then to independent walking. SELF CARE INSTRUCTIONS AFTER TOTAL KNEE REPLACEMENT A. You may need to continue a physical therapy program after discharge from the hospital. There are several options available to you. Your doctor will assist you in selecting the best one for you. 1. An out-patient facility 2 to 3 times a week for therapy or home therapy. 2. Continue working on all exercises taught to you in the hospital. Your goals should be to increase bending of your knee to 90 degrees and beyond and to fully straighten your knee. B. You may progress at your own pace from walking with a walker or crutches to a cane; then to no assistive devices. C. Make walking a part of your daily routine. Be up as much as comfortable with rest periods throughout the day. Rest with leg elevation is very important. Use the ice wrap frequently for the first 3-4 weeks. D. There are no restrictions on activities. You may ride in a car, shop, participate in sign fabricator and all social activities. E. Wear the long elastic stockings (BIJAL hose) 20 hours a day for six weeks after surgery. They can be removed several times a day for laundering and for a shower. F. Do not place a pillow behind your knee when resting. A pillow at your ankle is okay. VERY IMPORTANT TO READ AND REVIEW A. Take Xarelto (blood thinning medication) as directed by your doctor. B. There are a few signs you need to watch for after you are home. Call [facility] if you notice any of the followin. Increased severe knee pain. Some pain is expected especially when you exercise. 2. Increased swelling in your leg or knee; pain or swelling of the calf muscle in either lower leg. 3. Any fluid drainage from the incision. 4. Shortness of breath or chest pain. C. Please call [facility] at if you have any concerns or questions about your operation or recovery. The doctor or his nurse will return your call promptly. D. You must take antibiotics before dental work, bladder, bowel or other surgery. Call the office to obtain a prescription at least 2 days prior to your appointment. * CALL IF INCREASED PAIN, REDNESS, DRAINAGE OR FEVER GREATER THAT 101. * Sutures should be removed 12-14 days after surgery unless you are on chronic steriods, then it will be 14-18 days after surgery. Call your doctor if: * Temperature above 101 degrees F. * Pain not relieved by pain medicine ordered. * Increased drainage or redness from incision. * Notify your doctor with any questions or concerns. Current Hospital Diet Patient's current hospital diet: Regular Diet Discharge Diet Recommended Diet: Regular Diet Procedures Procedures Performed: Right Patella Resurfacing Pending Studies Studies pending at discharge: no Medical Emergencies . Who to Call and When: Medical Emergencies: If at any time you feel your situation is an emergency, please call 911 immediately. . Non-Emergent Contact Non-Emergency issues call your: Primary Care Provider, Surgeon Call Non-Emergent contact if: temperature is above 101, wound has increased drainage, wound has increased redness, wound has increased pain, you have any medication questions . "Provider Documentation" section prepared by Troy Kasper PA-C. . [facility] Drug Monitoring Program Search Results: no issues identified
--- NOTE | 2017-09-21 07:45 | [facility] Operative Report ---
Operative Report Operative Date Sep 19, 2017. Pre-Operative Diagnosis Right knee patellofemoral arthritis Post-Operative Diagnosis Right knee same as preop Procedure(s) Performed Right Patella Resurfacing Surgeon Dr. Interiano Railway Switch Operator Surgeon(s) Troy Kasper PA-C, Cuong Massey Fellow Estimated Blood Loss 50 ml Findings Patellar DJD right knee Fluids 1200cc Specimens A. Right Knee Bone and Tissue Drains None Anesthesia Type MAC Spinal Regional Complication(s) none Disposition no Recovery Room / PACU Indications This 66-year-old white female presented to the office with chronic peripatellar pain after having previous right total knee arthroplasty. She did not have her patella resurfaced at the initial surgery. She has tried physical therapy and activity modification without improvement. She elects to proceed with surgical intervention in hopes of alleviating her pain. Preoperative imaging has been obtained. Description of Procedure Patient was administered a spinal anesthetic and then taken to the operating room where she was given sedation. She was prepped and draped in usual sterile fashion. Please see Dr. Interiano's operative report for specifics of the procedure. I was present for the entire case from initial patient positioning through final wound closure. Assistance was provided in tissue retraction, hemostasis, trial implant placement, final implant placement, and final wound closure. Patient was taken to the recovery room in satisfactory condition. I attest to the content of the Intraoperative Record and any orders documented therein. Any exceptions are noted below.
--- NOTE | 2017-09-21 07:51 | DIAGNOSTIC IMAGING REPORT ---
CT ANGIOGRAM OF THE CHEST CLINICAL HISTORY: Atypical chest pain. History of prior DVT and pulmonary embolism. COMPARISON STUDY: Chest x-ray dated 03/31/2016 TECHNIQUE: Following the IV administration of 93 mL of Optiray-320, CT angiogram of the thorax was performed from the thoracic inlet to the lung bases utilizing the pulmonary embolus protocol. Images are reviewed in the axial, sagittal, and coronal planes. IV contrast was administered without complication. MIP imaging was performed. A dose lowering technique was utilized adhering to the principles of ALARA. CT DOSE: 498.97 mGy.cm FINDINGS: No pathologically enlarged axillary mediastinal or hilar lymph nodes were visualized. There is mild dilatation of the ascending thoracic aorta which measures 40 mm in diameter. There were no pulmonary artery filling defects to indicate acute pulmonary embolism. No pleural effusions are visualized. There are bibasal dependent atelectatic changes. There is a 3 mm left upper lobe pulmonary nodule as visualized in image #[id number]. In a low risk patient, no further follow-up is indicated. IMPRESSION: 1. No evidence of acute pulmonary embolism 2. Bibasilar atelectatic changes 3. Mild dilatation of the ascending thoracic aorta which measures 40 mm. Electronically signed by: Mack aYtes M.D. 09/21/2017 7:49 AM Dictated Date/Time: 09/21/2017 7:42 AM
[2017-09-21] MEDS: MULTIVITAMIN TAB PO SCH (08:35)
[2017-09-21] MEDS: FERROUS GLUCONATE 324 MG TAB PO SCH ×2 (08:36→13:29)
[2017-09-21] MEDS: SUCRALFATE 1 GM TAB PO SCH (08:36)
[2017-09-21] MEDS: BuPROPion XL 300 MG TABCR PO SCH (08:37)
[2017-09-21] MEDS: DOCUSATE SODIUM 100 MG CAP PO SCH (08:37)
[2017-09-21] MEDS: PANTOprazole SOD 40 MG TAB PO SCH (08:37)
[2017-09-21] MEDS: SERTRALINE HCL 100 MG TAB PO SCH (08:38)
[2017-09-21] MEDS: SIMVASTATIN 20 MG TAB PO SCH (08:38)
[2017-09-21] MEDS: TIOTROPIUM BROMIDE 5 PUFF/90 MCG INH INH SCH (08:39)
[2017-09-21] MEDS: MAGNESIUM HYDROXIDE SUSP 30 ML UDC PO PRN (08:41)
--- NOTE | 2017-09-21 09:28 | PROGRESS NOTE ---
DATE: 09/21/[address] of her chest and EKG revealed no findings. At this point in time, the patient is stable for discharge. Continue with her anticoagulation as prior to admission. Follow up in two weeks for staple removal. This was discussed in detail with the patient. She is okay with this.
--- NOTE | 2017-09-21 09:36 | DISCHARGE SUMMARY ---
ADDENDUM The patient had some complaints of some atypical pressure in her chest for a brief period. Was unsure whether this is related to gas or whatever. Due to her history of DVT, a CT of her chest and EKG were obtained. These did not reveal any significant findings. As such, the patient will be discharged. She understands this. She will continue with her Xarelto. She is on 20 mg a day. She has a pressure dressing on her knee. She will follow up in two weeks for staple removal.
[2017-09-21] MEDS: RIVAROXABAN 20 MG TAB PO SCH (12:31)
== END 2017-09-21 17:20 | disposition home health service (06) | DRG 468 ==
LOC: C.ACU 07:47 → C.3E 08:30 → ENRESERV 14:09
PROVIDERS: ADMIT Physical Medicine & Rehabilitation Sports Medicine; ATTEND Physical Medicine & Rehabilitation Sports Medicine
PROC: 0SWC0JC Revision of Synthetic Substitute in Right Knee Joint, Patellar Surface, Open Approach (ICD-10-PCS; principal; 2017-09-19 10:30)
DX: T84.89XA Other specified complication of internal orthopedic prosthetic devices, implants and grafts, initial encounter (principal); J44.9 Chronic obstructive pulmonary disease, unspecified; E03.9 Hypothyroidism, unspecified; K21.9 Gastro-esophageal reflux disease without esophagitis; F32.9 Major depressive disorder, single episode, unspecified; Z90.49 Acquired absence of other specified parts of digestive tract; Z90.710 Acquired absence of both cervix and uterus; Z98.41 Cataract extraction status, right eye; Z98.42 Cataract extraction status, left eye; Z86.718 Personal history of other venous thrombosis and embolism; Z80.9 Family history of malignant neoplasm, unspecified; Z82.49 Family history of ischemic heart disease and other diseases of the circulatory system; Y82.8 Other medical devices associated with adverse incidents